=== PATIENT | male | born 1970 | race Caucasian/White ===

== ENCOUNTER 2021-07-14 07:24 | Outpatient (CLI) | payer OTHER, SELFPAY ==
--- NOTE | ~2021-07-14 | XR_ITS ---
EXAMINATION: XR lumbar spine 2-3V DATE: 07/14/2021 08:01 INDICATION: Low back pain TECHNIQUE: Anteroposterior and lateral views of the lumbar spine, and cone-down lateral view of the l umbosacral junction were obtained. COMPARISON: None. FINDINGS: There is no fracture, dislocation, or subluxation. The vertebral body heights are maintaine d. There is mild loss of intervertebral disc space height at L1-2 and L4-5. Small degenerative osteop hytes project from the anterior endplates of multiple vertebral bodies. A neurostimulator device is i mplanted in posterior subcutaneous tissues of the right flank. Its leads and in the central spinal ca nal above the superior margin of the radiograph. IMPRESSION: 1. Mild lumbar spondylosis. Reviewed, dictated and finalized at location A. STICS TEAM LEADER IMPRESSION: 1. Mild lumbar spondylosis.
--- NOTE | ~2021-07-14 | XR_ITS ---
EXAMINATION: XR chest 2V DATE: 07/14/2021 08:01 INDICATION: Hemoptysis TECHNIQUE: PA and lateral views of the chest are obtained. COMPARISON: None available FINDINGS: The lungs are free of acute opacities. There is no pleural effusion or pneumothorax. The ca rdiomediastinal silhouette is normal. The visualized bones and soft tissues are unremarkable. Neurost imulator leads and in the central spinal canal overlying the lower thoracic spine. IMPRESSION: 1. No acute cardiopulmonary abnormality. Reviewed, dictated and finalized at location A. NG ADVISOR
--- NOTE | ~2021-07-14 | XR_ITS ---
EXAMINATION: XR hip RT min 2V DATE: 07/14/2021 08:01 INDICATION: Right hip pain. TECHNIQUE: 2 views of right hip were obtained. COMPARISON: Right hip radiograph 02/09/2015 FINDINGS: Bone alignment is normal. No fracture. There is mild right hip osteoarthritis. A spine stim ulator is noted. IMPRESSION: 1. Mild right hip osteoarthritis. Reviewed, dictated and finalized at location A. ISHING AGENT
== END 2021-07-14 07:25 ==
PROVIDERS: PCP Family Medicine; Visit Provider Family Medicine
DX: M25.551 Pain in right hip (principal); M54.50 Low back pain, unspecified; R04.2 Hemoptysis; M47.816 Spondylosis without myelopathy or radiculopathy, lumbar region; M16.11 Unilateral primary osteoarthritis, right hip
CPT/HCPCS: 71046; 72100; 73502

== ENCOUNTER 2025-06-11 07:42 | Emergency (ER) | payer SELFPAY ==
[2025-06-11 07:47] VITALS: BP 171/94; PULSE 110; RESP 18; TEMP 36.7; O2SAT 100
--- NOTE | 2025-06-11 09:00 | PC.NURSE ---
Pt approached machining technician to notify he was leaving. Pt is declining to be seen due to wait time. Pt ambulated out in NAD w/ steady gait.
== END 2025-06-11 09:24 | disposition left against medical advice (07) ==
LOC: ANHED 09:11
DX: K92.1 Melena (principal)
CPT/HCPCS: 99199